=== PATIENT | female | born 1955 | race American Indian/Alaskan Native ===

== ENCOUNTER 2017-01-08 07:22 | Emergency (ER) | payer BC ==
[2017-01-08 07:51] VITALS: BP 163/60
[2017-01-08] MEDS ORDERED: TORADOL IM ONE (08:42)
--- NOTE | 2017-01-08 08:54 | Emergency Department Report ---
HPI - General Chief Complaint: Fall Time Seen by Provider: 01/08/17 08:41 - HPI HPI: 62-year-old female presents today with a right-sided rib pain 1 week. Patient states that she fell out of a chair forward and landed on her chest with pain since. He tried ibuprofen 800 mg with relief. Patient wants to rule out rib fracture. Positive for history of costochondritis and states that this feels like it. Describes the pain as 8 out of 10 constant sharp pain that is worse with movement. Denies fever, chills, nausea, vomiting, chest pain, shortness of breath, abdominal pain. ED Past Medical Hx - Past Medical History Previous Medical History?: Yes Hx Hypertension: Yes Additional medical history: hyperlipidema - Surgical History Past Surgical History?: Yes Additional Surgical History: orif r humerus - Social History Smoking Status: Never Smoker Substance Use Type: Non Opiate Pain - Medications Home Medications: Home Medications Medication Instructions Recorded Confirmed Last Taken Type Aspirin [Baby Aspirin] 81 mg PO 09/18/13 09/18/13 Unknown History Cyclobenzaprine HCl [FLEXERIL] 10 mg PO TID PRN #21 tablet 09/18/13 Unknown Rx Hydrochlorothiazide [Hctz] 25 mg PO QDAY 09/18/13 09/18/13 Unknown History Lovastatin [Altoprev] 10 mg PO 09/18/13 09/18/13 Unknown History Metoprolol [Lopressor TAB] 09/18/13 09/18/13 Unknown History Ibuprofen [Motrin 800 MG tab] 800 mg PO TID PRN #30 tablet 01/08/17 Unknown Rx Naproxen [Naprosyn] 500 mg PO BID #20 tablet 01/08/17 Unknown Rx methOCARBAMOL [Robaxin TAB] 500 mg PO BID #20 tab 01/08/17 Unknown Rx ED Review of Systems ROS: Stated complaint: RIB PAIN Other details as noted in HPI Constitutional: denies: chills, fever, malaise Eyes: denies: eye pain ENT: denies: ear pain, throat pain, congestion Respiratory: denies: cough, shortness of breath, wheezing Cardiovascular: denies: chest pain, palpitations Endocrine: no symptoms reported Gastrointestinal: denies: abdominal pain, nausea, vomiting Neurological: denies: headache, weakness, numbness, paresthesias Physical Exam - Physical Exam Vital Signs: Vital Signs 01/08/17 07:45 Temperature 97.9 F Pulse Rate 57 L Respiratory 20 Rate Blood Pressure 163/60 O2 Sat by Pulse 98 Oximetry Physical Exam: GENERAL: The patient is well-developed and well-nourished. Patient is in NAD. HEAD: Normocephalic. Atraumatic. NECK: Full range of motion. No midline or paraspinous tenderness to palpation. CHEST/LUNGS: Clear to auscultation throughout. Tenderness to palpation over the lateral aspect of right pectoralis major. Pain worsens with right upper extremity ROM. HEART/CARDIOVASCULAR: Regular rate and rhythm. No murmurs, rubs or gallops. ABDOMEN: Abdomen is soft, nontender. Bowel sounds normoactive. No guarding or rebound tenderness. EXTREMITIES: Full range of motion. Peripheral pulses intact. Capillary refill less than 2 seconds. NEURO: Alert and oriented x 3. Normal gait. ED Course Vital Signs 01/08/17 07:45 Temperature 97.9 F Pulse Rate 57 L Respiratory 20 Rate Blood Pressure 163/60 O2 Sat by Pulse 98 Oximetry ED Medical Decision Making - Lab Data Vital Signs 01/08/17 07:45 Temperature 97.9 F Pulse Rate 57 L Respiratory 20 Rate Blood Pressure 163/60 O2 Sat by Pulse 98 Oximetry - Medical Decision Making 62-year-old female presents today with right-sided chest pain post fall. Discussed with patient that to rule out any rib fracture and CT needs to be ordered. Patient denied CT or other imaging. She was like a refill of her ibuprofen 800 mg.Patient is in no acute distress at this time. She will be discharged home and is encouraged to follow up with a primary care provider. She will be sent home on ibuprofen, naproxen and Robaxin and is encouraged to return to the emergency room for any worsening symptoms. Discussed with patient that ibuprofen and naproxen and not to be taken at the same time. Patient expressed understanding. Critical care attestation.: If time is entered above; I have spent that time in minutes in the direct care of this critically ill patient, excluding procedure time. ED Disposition Clinical Impression: Muscle strain, Chest wall tenderness Disposition: DISCHARGED TO HOME OR SELFCARE Is pt being admited?: No Does the pt Need Aspirin: No Condition: Stable Instructions: Chest Pain (ED), Costochondritis (ED), Muscle Strain (ED) Additional Instructions: Follow-up with primary care provider. Return to the emergency department if symptoms worsen. Do not take ibuprofen and naprosyn at the same time. Prescriptions: Ibuprofen [Motrin 800 MG tab] 800 mg PO TID PRN #30 tablet PRN Reason: N/V If Npo And No Iv Access methOCARBAMOL [Robaxin TAB] 500 mg PO BID #20 tab Naproxen [Naprosyn] 500 mg PO BID #20 tablet Referrals: BJ ALBERT MD [Primary Care Provider] - 3-5 Days THEODORE GONZALEZ MD [Staff Physician] - 3-5 Days Forms: Work/School Release Form(ED) Time of Disposition: 08:54
== END 2017-01-08 09:02 | disposition home or self-care (01) ==
LOC: ED 07:22
DX: S29.011A Strain of muscle and tendon of front wall of thorax, initial encounter (principal); I10 Essential (primary) hypertension; E78.00 Pure hypercholesterolemia, unspecified; X58.XXXA Exposure to other specified factors, initial encounter; Y93.9 Activity, unspecified; Y92.9 Unspecified place or not applicable; Y99.9 Unspecified external cause status
CPT/HCPCS: 96372; 99282; J1885